=== PATIENT | female | born 1975 | race Caucasian/White ===

== ENCOUNTER 2023-12-07 04:36 | Day surgery (SDC) | payer BC ==
[2023-12-01 13:14] VITALS: BMI 33.0
[2023-12-07 10:03] VITALS: TEMP 97.8
[2023-12-07 10:36] VITALS: BP 120/71; PULSE 68; RESP 18
== END 2023-12-07 10:50 | disposition home or self-care (01) ==
LOC: JASU-ENDO 04:36
PROVIDERS: ATTEND Internal Medicine Gastroenterology
PROC: 0DB68ZX Excision of Stomach, Via Natural or Artificial Opening Endoscopic, Diagnostic (ICD-10-PCS; 2023-12-07)
PROC: 0DB78ZX Excision of Stomach, Pylorus, Via Natural or Artificial Opening Endoscopic, Diagnostic (ICD-10-PCS; 2023-12-07)
PROC: 0DJD8ZZ Inspection of Lower Intestinal Tract, Via Natural or Artificial Opening Endoscopic (ICD-10-PCS; principal; 2023-12-07 09:30)
DX: Z12.11 Encounter for screening for malignant neoplasm of colon (principal); R12 Heartburn
CPT/HCPCS: 81025; 88305-TC; 88342-TC